=== PATIENT | male | born 1990 | race Caucasian/White ===

== ENCOUNTER 2018-05-23 06:55 | Day surgery (SDC) | payer BC ==
[~2018-05-23] VITALS: Ht 180.3 cm; Wt 59.8 kg
[2018-05-23] MEDS ORDERED: normal saline 1000ml 1,000 ML IV PRN (07:20)
[2018-05-23 07:54] VITALS: BP 137/96
[2018-05-23 08:01] LABS: BASOPHILS % (AUTO) 0.3 % (0-1); EOSINOPHILS # (AUTO) 0.3 X10'3 (0-0.9); EOSINOPHILS % (AUTO) 6.8 % (0-6); HEMATOCRIT 42.3 % (42.0-52.0); HEMOGLOBIN 14.3 g/dl (14.0-17.9); LYMPHOCYTES # (AUTO) 1.7 X10'3 (1.1-4.8); LYMPHOCYTES % (AUTO) 38.3 % (21-51); MEAN CORPUSCULAR HEMOGLOBIN 29.7 PG (27.0-31.0); MEAN CORPUSCULAR HGB CONC 33.8 % (33.0-36.5); MEAN CORPUSCULAR VOLUME 87.9 FL (78-98); MEAN PLATELET VOLUME 8.1 FL (7.4-10.4); MONOCYTES # (AUTO) 0.4 X10'3 (0-0.9); NEUTROPHILS % (AUTO) 44.6 % (42-75); PLATELET COUNT 241 X10'3 (140-440); RED BLOOD COUNT 4.82 X10'6 (4.70-6.10); RED CELL DISTRIBUTION WIDTH 12.5 % (11.5-14.5); WHITE BLOOD COUNT 4.4 X10'3 (4.5-11.0)
[2018-05-23 08:05] LABS: ALBUMIN 3.8 G/DL (3.4-5.0); ANION GAP 5 (8-16); BLOOD UREA NITROGEN 14 MG/DL (7-18); BUN/CREATININE RATIO 14.9 (5.4-32.0); CALCIUM 9.1 MG/DL (8.5-10.1); CHLORIDE 106 MMOL/L (99-107); CREATININE 0.94 MG/DL (0.60-1.10); GLUCOSE 86 MG/DL (70-104); POTASSIUM 4.5 MMOL/L (3.5-5.1); SODIUM 141 MMOL/L (135-145); TOTAL CARBON DIOXIDE 29.7 MMOL/L (24-32); eGFR > 90 ML/MIN
[2018-05-23] MEDS ORDERED: fentaNYL/PF 50MCG/1 ML 2ML syringe IV PRN (08:25)
[2018-05-23] MEDS ORDERED: midazolam 2 mg/2 ml injection IV PRN (08:25)
[2018-05-23] MEDS ORDERED: LIDOcaine 1% (10mg/ml) 2ml vial ONE (09:12)
[2018-05-23] MEDS ORDERED: midazolam 2 mg/2 ml injection ONE (09:12)
[2018-05-23] MEDS ORDERED: fentaNYL/PF 50MCG/1 ML 2ML syringe ONE ×2 (09:12→09:48)
[2018-05-23] MEDS ORDERED: iohexol 300 MG/1 ML 50ml polymer ONE (09:13)
[2018-05-23 10:35] VITALS: BP 121/74
[2018-05-23] MEDS ORDERED: HYDROcodone/acetaminophen 5mg/325mg tablet PO ONE (10:45)
[2018-05-23 10:50] VITALS: BP 118/69
[2018-05-23 11:05] VITALS: BP 118/44
[2018-05-23 11:20] VITALS: BP 120/69
[2018-05-23 11:35] VITALS: BP 105/64
[2018-05-25] MEDS ORDERED: SULF1TAB49 PO (13:18)
== END 2018-05-23 11:50 | disposition home or self-care (01) ==
LOC: SSTAY O 06:55
PROVIDERS: ATTEND Radiology Diagnostic Radiology
DX: N13.0 Hydronephrosis with ureteropelvic junction obstruction (principal); F19.21 Other psychoactive substance dependence, in remission; Z88.1 Allergy status to other antibiotic agents; Z72.89 Other problems related to lifestyle; Z79.899 Other long term (current) drug therapy
CPT/HCPCS: 36415; 50432; 76942; 80048; 85025; 99152; 99153; C1769; C1894; J2250; J3010; J3490; J7030; Q9967